=== PATIENT | male | born 1955 | race Caucasian/White ===

== ENCOUNTER 2017-02-21 09:23 | Day surgery (SDC) | payer BC ==
[2017-02-21] MEDS ORDERED: COREG12.5 M1 PO (10:02)
[2017-02-21] MEDS ORDERED: COZAAR25 M1 PO (10:03)
[2017-02-21] MEDS ORDERED: ASPIRIN81 M1 PO (10:03)
[2017-02-21] MEDS ORDERED: GLUCOPHAGE500 M3 PO (10:03)
[2017-02-21] MEDS ORDERED: SIMVASTATIN40 M1 PO (10:04)
[2017-02-21 11:21] LABS: URINE LEUKOCYTE ESTERASE NEGATIVE (NEG); URINE PROTEIN MODERATE (NEG)
[2017-02-21 11:23] LABS: URINE APPEARANCE CLEAR; URINE BILIRUBIN NEGATIVE (NEG); URINE BLOOD NEGATIVE (NEG); URINE COLOR YELLOW; URINE GLUCOSE (UA) MODERATE (NEG); URINE KETONE MODERATE (NEG); URINE NITRITE NEGATIVE (NEG)
[2017-02-21 11:35] LABS: URINE EPITHELIAL CELLS 0-3 /[HPF] (0-10); URINE RBC 0-1 /[HPF] (0-5); URINE WBC 0-2 /[HPF] (0-5)
== END 2017-02-21 15:45 ==
LOC: SHSC 09:23 → ORW 11:23 → PACU 12:26 → SHSC 13:00
PROVIDERS: Urology
PROC: 0TC78ZZ Extirpation of Matter from Left Ureter, Via Natural or Artificial Opening Endoscopic (ICD-10-PCS; principal; 2017-02-21)
PROC: 0T778DZ Dilation of Left Ureter with Intraluminal Device, Via Natural or Artificial Opening Endoscopic (ICD-10-PCS; 2017-02-21)
DX: N20.1 Calculus of ureter (principal); N32.89 Other specified disorders of bladder; I25.10 Atherosclerotic heart disease of native coronary artery without angina pectoris; I10 Essential (primary) hypertension; E66.9 Obesity, unspecified; E11.9 Type 2 diabetes mellitus without complications; K21.9 Gastro-esophageal reflux disease without esophagitis; Z79.82 Long term (current) use of aspirin; Z79.84 Long term (current) use of oral hypoglycemic drugs; Z79.899 Other long term (current) drug therapy; Z87.442 Personal history of urinary calculi; Z87.11 Personal history of peptic ulcer disease; Z95.1 Presence of aortocoronary bypass graft; Z98.890 Other specified postprocedural states
CPT/HCPCS: C1726; C1769; C2617; J1200; J1956; J2405; Q9967